=== PATIENT | male | born 1965 | race Caucasian/White ===

== ENCOUNTER 2016-12-17 20:26 | Emergency (ER) | payer OTHER ==
[~2016-12-17] VITALS: Ht 177.8 cm; Wt 107.9 kg
[2016-12-17 20:28] VITALS: BP 165/81
== END 2016-12-17 22:38 | disposition home or self-care (01) ==
LOC: ED 22:32
DX: J32.0 Chronic maxillary sinusitis (principal); J32.2 Chronic ethmoidal sinusitis; J32.3 Chronic sphenoidal sinusitis; Z88.0 Allergy status to penicillin
CPT/HCPCS: 76380